=== PATIENT | female | born 1975 | race African-American/Black ===

== ENCOUNTER 2024-06-29 10:07 | Emergency (ER) | payer MEDICAID, MEDICARE, OTHER ==
[~2024-06-29] VITALS: Ht 170.2 cm; Wt 95.3 kg
[2024-06-29 10:36] VITALS: BP 159/93; TEMP 98.3
[2024-06-29] MEDS ORDERED: NAPR-1164 PO (10:48)
[2024-06-29] MEDS ORDERED: FLUT16SP16 BNOSTRILS (10:48)
[2024-06-29 10:53] VITALS: O2SAT 100
== END 2024-06-29 10:55 | disposition home or self-care (01) ==
LOC: ER 10:14
DX: J06.9 Acute upper respiratory infection, unspecified (principal); J45.909 Unspecified asthma, uncomplicated; B97.89 Other viral agents as the cause of diseases classified elsewhere; Z88.0 Allergy status to penicillin

== ENCOUNTER 2025-01-17 08:28 | Emergency (ER) | payer OTHER ==
[~2025-01-17] VITALS: Ht 170.2 cm; Wt 115.8 kg
[~2025-01-17 08:28] MED LIST: FLUT16SP16 BNOSTRILS; NAPR-1164 PO
[2025-01-17 08:41] VITALS: TEMP 97.8
[2025-01-17 08:49] VITALS: BP 150/79; O2SAT 99
== END 2025-01-17 08:50 | disposition home or self-care (01) ==
LOC: ER 08:34
DX: S13.4XXA Sprain of ligaments of cervical spine, initial encounter (principal); S40.011A Contusion of right shoulder, initial encounter; J45.909 Unspecified asthma, uncomplicated; Z88.0 Allergy status to penicillin; Z60.2 Problems related to living alone; V43.52XA Car driver injured in collision with other type car in traffic accident, initial encounter; Y93.89 Activity, other specified; Y92.488 Other paved roadways as the place of occurrence of the external cause; Y99.8 Other external cause status